=== PATIENT | female | born 2000 | race Caucasian/White ===

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

== ENCOUNTER 2021-11-07 12:37 | Emergency (ER) | payer OTHER ==
[2021-11-07] MEDS ORDERED: AMOX TR-K CLV1 EAC4 PO (13:07)
== END 2021-11-07 13:37 | disposition home or self-care (01) ==
LOC: ER1 12:37
DX: H60.92 Unspecified otitis externa, left ear (principal)
CPT/HCPCS: 99282